=== PATIENT | female | born 1955 | race Caucasian/White ===

== ENCOUNTER 2017-11-16 11:00 | Emergency (ER) | payer OTHER ==
[2017-11-16 11:54] VITALS: BP 86/50
--- NOTE | 2017-11-16 12:59 | UC ---
General HPI - HPI Summary HPI Summary: Patient here accompanied by complaining of onset of right facial swelling since yesterday morning. She has a history of intermittent parotid gland swelling but states her last episode was over 2 years ago. Symptoms usually resolve with warm compresses, massage and lemon candies. This episode is much different. It is not responding to her usual treatments. The swelling and pain are much worse and patient has overall malaise and body aches. She also reports nausea but no vomiting. She has no appetite. Temperature is elevated. No sore throat or ear pain. She reports up-to-date on all vaccinations. Also reports she had mumps as a college student. - History of Current Complaint Chief Complaint: UCUpperExtremity Stated Complaint: SWOLLEN SIDE OF FACE Time Seen by Provider: 11/16/17 12:33 Hx Obtained From: Patient Onset/Duration: Gradual Onset, Lasting Days - 1 DAY, Still Present Timing: Constant Onset Severity: Moderate Current Severity: Moderate Pain Intensity: 8 Associated Signs & Symptoms: Positive: Fever, Headache, Nausea - Allergy/Home Medications Allergies/Adverse Reactions: Allergies Allergy/AdvReac Type Severity Reaction Status Date / Time methotrexate Allergy Headache Verified 11/16/17 11:38 Sulfa (Sulfonamide Allergy Rash Verified 11/16/17 11:38 Antibiotics) Home Medications: Home Medications Calcium Carb/Vitamin D3/Vit K1 [Calcium + D Soft Chewable Tab] 1 each PO DAILY 11/16/17 [History Confirmed 11/16/17] Carvedilol TAB* [Coreg TAB*] 12.5 mg PO BID 11/16/17 [History Confirmed 11/16/17 ] Multivitamin [Multivitamins] 1 cap PO DAILY 11/16/17 [History Confirmed 11/16/17 ] Naproxen Sodium [Naproxen Sodium 500 MG TAB] 500 mg PO DAILY 11/16/17 [History Confirmed 11/16/17] Ramipril CAP* [Altace CAP*] 10 mg PO DAILY 11/16/17 [History Confirmed 11/16/17] predniSONE TAB* [Deltasone TAB*] 2.5 mg PO DAILY 11/16/17 [History Confirmed ] PMH/Surg Hx/FS Hx/Imm Hx - Additional Past Medical History Additional PMH: RA Cardiovascular History: Hypertension - Surgical History Surgical History: Yes Surgery Procedure, Year, and Place: tubal ligation. cholecystectomy. R big toe surgery. L forearm surgery - Family History Known Family History: Positive: Cardiac Disease - Social History Alcohol Use: None Substance Use Type: None Smoking Status (MU): Never Smoked Tobacco Review of Systems Constitutional: Fever, Fatigue Skin: Other - Swollen right parotid gland with overlying erythema ENT: Negative Respiratory: Negative Cardiovascular: Negative Gastrointestinal: Nausea Neurological: Headache All Other Systems Reviewed And Are Negative: Yes Physical Exam Triage Information Reviewed: Yes Appearance: No Pain Distress, Ill-Appearing - MILD Vital Signs: Initial Vital Signs Temp 100.0 F 11/16/17 11:43 Pulse 79 11/16/17 11:43 Resp 18 11/16/17 11:43 BP 86/50 11/16/17 11:43 Pulse Ox 97 11/16/17 11:43 Eyes: Positive: Conjunctiva Clear ENT: Positive: Hearing grossly normal, Pharynx normal, TMs normal, Trismus Neck: Positive: Other: - Right facial swelling in area of parotid gland extending down to neck obscuring the angle of the mandible. Swelling measures about 10 cm. Respiratory Exam: Normal Cardiovascular Exam: Normal Abdomen Description: Positive: Soft Musculoskeletal: Positive: No Edema Neurological: Positive: Alert Psychological: Positive: Age Appropriate Behavior Skin: Positive: Other - Erythema overlying right facial swelling Course/Dx - Course Course Of Treatment: Patient has a low blood pressure, elevated temperature and probable infected salivary gland. Concern for early sepsis. PT OFFERED TRANSPORT TO ED BY AMBULANCE BUT DECLINES. ADVISED THAT BY NOT TRAVELING IN A MONITORED SETTING SHE COULD BE RISKING WORSENING OF HER CONDITION THAT COULD POSE A THREAT TO HER LIFE, HEALTH AND MEDICAL SAFETY. SHE VERBALIZES UNDERSTANDING AND CONTINUES TO DECLINE AMBULANCE TRANSFER. - Differential Dx - Multi-Symptom Provider Diagnoses: INFECTED SALIVARY GLAND/POSSIBLE EARLY SEPSIS Discharge - Sign-Out/Discharge Documenting (check all that apply): Discharge - Discharge Plan Condition: Stable Disposition: HOME Patient Education Materials: Sialoadenitis (ED) Referrals: No Primary Care Phys,NOPCP [Primary Care Provider] - Additional Instructions: Go directly to the [facility] from here for further evaluation. Concern for systemic infection given your elevated temperature, low blood pressure and probable infected salivary gland. You will need to follow up with your PCP back home in [place]. You may need to adjust your blood pressure medication. - Billing Disposition and Condition Condition: STABLE Disposition: HOME
== END 2017-11-16 12:58 | disposition home or self-care (01) ==
LOC: UCEAST 11:00
DX: K11.20 Sialoadenitis, unspecified (principal); R50.9 Fever, unspecified; R51 Headache; R11.0 Nausea; M06.9 Rheumatoid arthritis, unspecified; Z88.2 Allergy status to sulfonamides; Z88.8 Allergy status to other drugs, medicaments and biological substances; I10 Essential (primary) hypertension
CPT/HCPCS: 99201; G0463

== ENCOUNTER 2017-11-16 13:16 | Inpatient (IN) | payer OTHER ==
[2017-11-16] MEDS ORDERED: NS 0.9% 1000 ML*IV.FLUID IV ONE (14:30)
[2017-11-16] MEDS ORDERED: Ondansetron INJ* 2 MG/ML VIAL IV ONE (14:31)
[2017-11-16] MEDS ORDERED: Morphine INJ* 4 MG/ML 1 ML SYRINGE (NEW SYRINGE VERSION) IV ONE ×2 (14:31→16:58)
[2017-11-16] MEDS ORDERED: Morphine VIAL* 4 MG/ML VIAL (1 ml vial) IV ONE (14:47)
[2017-11-16 15:15] LABS: Hematocrit 36 % (35-47); Hemoglobin 11.2 g/dl (12.0-16.0); Mean Corpuscular HGB Conc 31 g/dl (31-36); Mean Corpuscular Hemoglobin 23 pg (27-31); Mean Corpuscular Volume 74 fL (80-97); Mean Platelet Volume 7.8 um3 (7.4-10.4); Platelet Count 328 10^3/ul (150-450); Red Blood Count 4.86 10^6/ul (4.0-5.4); Red Cell Distribution Width 18 % (10.5-15); White Blood Count 26.2 10^3/ul (3.5-10.8)
--- NOTE | 2017-11-16 15:18 | ED ---
Complex/Multi-Sys Presentation - HPI Summary HPI Summary: Patient is a 62-year-old female who presents emergency department for pain, swelling and redness of the right side of her face that started this morning. Patient states she is a history of parotitis in the past. She notes she was not feeling well this morning and then noticed her face progressively becoming more swollen. Associated symptoms of fever and chills. Symptoms are moderate in severity. Hx of RA and is on Humira. Touching face makes symptoms worse. Rest makes symptoms better. - History Of Current Complaint Chief Complaint: EDGeneral Time Seen by Provider: 11/16/17 14:21 - Allergies/Home Medications Allergies/Adverse Reactions: Allergies Allergy/AdvReac Type Severity Reaction Status Date / Time methotrexate Allergy Headache Verified 11/16/17 11:38 Sulfa (Sulfonamide Allergy Rash Verified 11/16/17 11:38 Antibiotics) Home Medications: Home Medications Adalimumab [Humira] 20 mg SQ SEE INSTRUCTIONS 11/16/17 [History Confirmed ] PMH/Surg Hx/FS Hx/Imm Hx Previously Healthy: Yes Cardiovascular History: Reports: Hx Hypertension - Surgical History Surgery Procedure, Year, and Place: tubal ligation. cholecystectomy. R big toe surgery. L forearm surgery Infectious Disease History: No Infectious Disease History: Denies: Traveled Outside the [place] in Last 30 Days - Family History Known Family History: Positive: Cardiac Disease - Social History Occupation: Unemployed Lives: With Family Alcohol Use: None Substance Use Type: Reports: None Smoking Status (MU): Never Smoked Tobacco Review of Systems Positive: Fever, Chills Positive: Other - Swelling and pain to right side of face. Cardiovascular: Negative Respiratory: Negative Gastrointestinal: Negative Negative: Vomiting, Nausea Neurological: Negative All Other Systems Reviewed And Are Negative: Yes Physical Exam Triage Information Reviewed: Yes Vital Signs On Initial Exam: Initial Vitals Temp Pulse Resp BP Pulse Ox 98.8 F 82 18 110/53 98 11/16/17 13:26 11/16/17 13:26 11/16/17 13:26 11/16/17 13:26 11/16/17 13:26 Vital Signs Reviewed: Yes Appearance: Positive: Pain Distress - Pt. sitting up in bed, appears in pain but nontoxic. Marked edema noted to the right side of face. present. Head/Face: Positive: Other Eyes: Positive: Normal, EOMI ENT: Positive: Other - Marked edema, erythema and pain to the right side of face extending from just below the right ear to underneath the madible. Trimsus noted. No muffled voice or drooling. Musculoskeletal: Positive: Normal Neurological: Positive: Normal, CN Intact II-III Psychiatric: Positive: Normal Diagnostics - Vital Signs Vital Signs Temp Pulse Resp BP Pulse Ox 11/16/17 15:03 18 11/16/17 13:26 98.8 F 82 18 110/53 98 - Laboratory Result Diagrams: 11/16/17 15:03 11/16/17 15:03 Lab Statement: Any lab studies that have been ordered have been reviewed, and results considered in the medical decision making process. Complex Multi-Symp Course/Dx Course Of Treatment: P presenting to the emergency department for acute onset of swelling and pain to the right side of her face. Initially afebrile but she did spike a fever 101.4C. HP initially 110/53. Concern for sepsis secondary to parotitis versus dental abscess versus tonsillar abscess. Patient was started on 30 cc/kg bolus of normal saline. Pain medication and antibiotics were ordered. Pending CT scan and blood work. CBC shows a leukocytosis of 26, 000. Labs are otherwise unremarkable. CT read per radiolgoy: IMPRESSION: THERE IS DIFFUSE ENLARGEMENT OF THE PAROTID GLANDS BILATERALLY, GREATER ON THE RIGHT THAN. ON THE LEFT, WITH HETEROGENEOUS ATTENUATION OF THE RIGHT PAROTID GLAND AND BILATERAL. SIALOLITHIASIS. THERE IS INFLAMMATORY CHANGE ADJACENT TO THE RIGHT PAROTID GLAND, THE. APPEARANCE IS SUGGESTIVE OF PAROTITIS. I spoke with ENT, Dr. Houser, and he presented to the ER and examined pt. He would like IV clindamycin and oral prednisone. He will re-exam pt. in the morning. I spoke with hospitalist, Dr. Forrest, and she has accepted pt. to her service. - Diagnoses Provider Diagnoses: Parotitis, Sepsis Discharge - Sign-Out/Discharge Documenting (check all that apply): Discharge - Discharge Plan Condition: Stable Disposition: ADMITTED TO [facility] Referrals: No Primary Care Phys,NOPCP [Primary Care Provider] - - Billing Disposition and Condition Condition: STABLE Disposition: [facility]
[2017-11-16 15:30] LABS: EGFR Non-African American 81.8 (>60)
[2017-11-16] MEDS ORDERED: Clindamycin 300 MG IVPREMIX(* 300 MG/50 ML SDV IVPB ONE (15:32)
[2017-11-16] MEDS ORDERED: Iohexol 300* (CONTRAST) 10 ML SDV IV ONE (15:36)
[2017-11-16 15:43] LABS: ABS Basophils 0 10^3/ul (0-0.2); ABS Eosinophils 0 10^3/ul (0-0.6); ABS Lymphocytes 1.1 10^3/ul (1.0-4.8); ABS Monocytes 0.7 10^3/ul (0-0.8); ABS Neutrophils 24.3 10^3/ul (1.5-7.7); ABS Nucleated RBC 0 10^3/ul; Eosinophil % 0.2 % (0-6); Lymphocyte % 4.2 % (25-47); Nucleated Red Blood Cells % 0
[2017-11-16] MEDS ORDERED: Acetaminophen TAB* 325 MG PO ONE (15:50)
--- NOTE | 2017-11-16 16:06 | RAD ---
HISTORY: Right facial neck edema and pain COMPARISONS: None TECHNIQUE: Multiple contiguous axial CT scans were obtained of the neck after the administration of nonionic intravenous contrast, with coronal and sagittal multiplanar reformations. FINDINGS: BRAIN AND ORBITS: The visualized brain and orbits are normal. PARANASAL SINUSES: The visualized paranasal sinuses are clear. SALIVARY GLANDS: The parotid glands are diffusely enlarged bilaterally, greater on the right than on the left, with multiple punctate calcifications. The right salivary gland is heterogeneous in attenuation. There is mild stranding of the adjacent fat. NASAL CAVITY/NASOPHARYNX: The nasal cavity and nasopharynx are normal. ORAL CAVITY/OROPHARYNX: The oral cavity is obscured by streak artifact from dental amalgam. The visualized oral cavity and oropharynx are unremarkable. LARYNGEAL APPARATUS/HYPOPHARYNX: The laryngeal apparatus and hypopharynx are normal. UPPER AIRWAY/UPPER ESOPHAGUS: The visualized upper airway and esophagus are normal. LUNG APICES: The lung apices are clear. THYROID GLAND: The thyroid gland is normal. LYMPH NODES: There are multiple scattered small, less than 1 cm short axis, lymph nodes noted along the anterior and posterior cervical chain. There is no lymphadenopathy by size criteria. There is a 0.8 cm short axis prevascular lymph node in the anterior mediastinum. VASCULATURE: The vasculature is unremarkable. BONES AND SOFT TISSUES: Mild degenerative changes are noted. OTHER: None. IMPRESSION: THERE IS DIFFUSE ENLARGEMENT OF THE PAROTID GLANDS BILATERALLY, GREATER ON THE RIGHT THAN ON THE LEFT, WITH HETEROGENEOUS ATTENUATION OF THE RIGHT PAROTID GLAND AND BILATERAL SIALOLITHIASIS. THERE IS INFLAMMATORY CHANGE ADJACENT TO THE RIGHT PAROTID GLAND, THE APPEARANCE IS SUGGESTIVE OF PAROTITIS.
[2017-11-16] MEDS ORDERED: Morphine INJ* 2 MG/ML 1 ML CARPUJECT IV PRN (18:44)
[2017-11-16] MEDS ORDERED: Ondansetron INJ* 2 MG/ML VIAL IV PRN (18:44)
[2017-11-16] MEDS ORDERED: NS 0.9% 1000 ML* 1,000 ML IV SCH (18:45)
[2017-11-16] MEDS: Docusate CAP* 100 MG PO SCH (20:36)
[2017-11-16] MEDS: Carvedilol TAB* 25 MG PO SCH (20:36)
[2017-11-16] MEDS: Acetaminophen TAB* 325 MG PO PRN (20:36)
[2017-11-16] MEDS: Clindamycin 600 MG IVPREMIX(* 600 MG/50 ML SDV IV SCH (20:36)
[2017-11-16] MEDS: Hydrocortisone INJ* 100 MG VIAL IV SCH (20:37)
[2017-11-16] MEDS: Morphine VIAL* 4 MG/ML VIAL (1 ml vial) IV PRN (20:42)
[2017-11-16] MEDS: NS 0.9% 1000 ML* 1,000 ML IV SCH ×2 (20:43→22:19)
--- NOTE | 2017-11-16 21:29 | CONS ---
CONSULTATION REPORT: DATE OF CONSULT: 11/16/17 ATTENDING PHYSICIAN: Howard Houser MD for the ER. HISTORY OF PRESENT ILLNESS: This pleasant 62-year-old female residing in [place], is travelling here on business, had a longstanding history about 2 years of intermittent parotid swelling, which she was able to drain mostly on her own. Unfortunately in the last 24 hours, the swelling had markedly increased with significant tenderness and fever, just generalized malaise, felt to be somewhat systemically ill. She has a history of rheumatoid arthritis, on Humira. She is taking oral prednisone. PHYSICAL EXAMINATION: On physical examination, there was no evidence of any purulence. There was a significant amount of right-sided parotid swelling. The rest of the ENT examination was unremarkable. DIAGNOSTIC STUDIES/LAB DATA: CT showed diffuse inflammation of the salivary right parotid gland without any dilated ducts. CLINICAL IMPRESSION: The patient with parotitis most likely inflammatory bacterial with elevated white count. I would suggest a course of IV antibiotics with clindamycin 900 t.i.d., as well as some prednisone 40 mg b.i.d. for 3 days. I will reevaluate her tomorrow for possible dilatation if necessary. [id number]/CPS #: [id number] MTDD
--- NOTE | 2017-11-16 22:11 | HP ---
CC: Dr. Howard Houser * ADMISSION HISTORY AND PHYSICAL: DATE OF ADMISSION: 11/16/17 ATTENDING HOSPITALIST: Dr. Hannah Forrest * (DICTATED BY LANDON BAEZA) CHIEF COMPLAINT: Right-sided facial swelling and pain. HISTORY OF PRESENT ILLNESS: Mrs. Cedeño is a pleasant 62-year-old female with past medical history of rheumatoid arthritis and hypertension, who presented to the Emergency Room at [facility] with a 24-hour history of increasing swelling and pain to her right face. The patient notes that she had had issues with her parotid gland in the past, most recently two years ago. She had a history of stones lodged in her salivary duct that usually was manipulated and removed in a conservative fashion. It started about 6 years ago when she noticed similar complaints and most recently about 2 years ago. She was able to increase her fluid intake and sometimes drinks some sour lemon juice that helped her to pass any stones. She noticed some increased right facial swelling and redness for the last 24 hours that has gotten progressively worse. She notes associated fever, fatigue, and not feeling very well for which she presented at emergency room for further evaluation. The patient was evaluated by Dr. Houser earlier and was found to have parotitis for which we will ask to see the patient for medical evaluation and to discuss admission for IV antibiotics. The patient herself reports feeling better at the time of admission after she took some morphine and IV hydration. Again, she had similar complaints in the past but has never progressed to the amount of swelling and redness that she has experienced right now. She lives in [place] half the year and in [place] the other half during the winter and she is in [place] to visit some good friends. She denied any facial numbness, weakness, headaches, excessive salivation or dry mouth. She has no trouble swallowing, breathing, wheezing or shortness of breath. PAST MEDICAL HISTORY: As mentioned above, significant for hypertension and rheumatoid arthritis for which she has been maintained on a low-dose prednisone. She also has a history of salivary gland stones that usually pass with conservative measures. PAST SURGICAL HISTORY: Significant for: 1. Laparoscopic cholecystectomy back in 1999. 2. Toe surgery in . 3. Tubal ligation back in 1981. 4. Dermatoid cyst excision back in 1984. 5. Tonsillectomy and adenoidectomy at age 5. CURRENT MEDICATIONS: Her medications at home include: 1. Humira 20 mg subcu every three months. 2. Calcium with vitamin D3 one tablet p.o. q.daily. 3. Coreg 12.5 p.o. b.i.d. 4. Multivitamins one cap daily. 5. Naproxen 500 mg p.o. q. daily. 6. Prednisone 2.5 p.o. daily. 7. Altace 10 mg p.o. q. daily. ALLERGIES: She is allergic to METHOTREXATE and SULFA ANTIBIOTICS. FAMILY HISTORY: The patient notes family history of coronary artery disease in both her maternal and paternal side. The patient reports that she had cardiac workup done a few years ago including stress test and echocardiogram and she was found to have all low-risk studies. SOCIAL HISTORY: The patient is a nonsmoker, who denies alcohol intake. 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 She lives in [place] and [place], and here in town to visit some friends, and her healthcare proxy is her , Emre. REVIEW OF SYSTEMS: See HPI. Otherwise negative. She denies any headache, dizziness, blurred vision or double vision. She admits to fever, but denies any chills, night sweats or recent weight loss. No sore throat, rhinorrhea, dysphagia or trouble swallowing. No shortness of breath, wheezing, chest pain or cough. She denies any back pain, flank pain, hematuria, dysuria or urinary frequency. All other 14 points of review of systems were reviewed and negative. PHYSICAL EXAMINATION GENERAL: She is pleasant, healthy-appearing, upper middle-aged female, in no acute distress or discomfort at the time of admission. VITAL SIGNS: Reveal temperature of 100.4, blood pressure of 98/45, respirations of 18, pulse of 79, and O2 sat of 94% on room air. HEENT: Head is normocephalic, atraumatic. Sclerae anicteric. PERRLA. EOMs intact. Oropharynx is pink and moist. Examination of the right parotid gland revealed enlarged gland extending from the tragus of her ear all the way down to the lower mandibular notch. The area is erythematous and warm to touch, and hard to palpation. There is [id number] tenderness on palpation. There is no evidence of discharge looking inside the buccal cavity at the area where the parotid gland duct would open. There is no cervical lymphadenopathy either. NECK: Supple. Trachea midline. No cervical adenopathy or thyromegaly. LUNGS: Clear to auscultation bilaterally. HEART: Regular rate and rhythm. Normal S1 and S2 without rubs, murmurs or gallops. BACK: With normal curvature. No CVA tenderness. BREASTS EXAM: Deferred at this time. ABDOMEN: Soft, nontender, and nondistended. No hernias, masses or hepatosplenomegaly. Bowel sounds were normoactive in all quadrants. EXTREMITIES: Without cyanosis, clubbing or edema. There are visible deformities at the PIP and DIP joints in both hands consistent with rheumatoid arthritis. There is no evidence of synovitis or redness. RECTAL: Deferred at this time. NEUROLOGIC: Grossly intact. DIAGNOSTIC DATA/LABORATORY DATA: The patient had CBC that showed marked leukocytosis with white count of 26,000, hemoglobin of 11.2, hematocrit of 36, and platelets of 328. Her chemistry panel with sodium of 132, potassium 4.1, chloride 98, CO2 24, BUN 15, and creatinine of 0.7. Her LFTs were essentially within normal limits and lactic acid was 1.5. Accessory diagnostic data: The patient had a neck CT scan that revealed a diffuse enlargement of the parotid glands bilaterally; however, it is much greater on the right than the left side with some heterogenous attenuation of the right parotid gland and bilateral sialolithiasis. There is inflammatory change adjacent to the right parotid gland. The appearance is suggestive of parotitis. IMPRESSION: A 62-year-old female with past medical history of hypertension and rheumatoid arthritis, who presented to the emergency room with progressive swelling and redness of her right face with signs, symptoms, and CT scan findings consistent with parotitis with a sepsis. PLAN AND RECOMMENDATIONS: 1. Parotitis with sepsis: The patient meets the criteria for sepsis based on her hypotension, leukocytosis, and fever. She will be hydrated aggressively. She received two boluses 1 L each in the ED and we will add another liter and continue hydration afterwards. She informs that she has been a little dehydrated since she has a hard time consuming food or drinks given her oral discomfort. We will also cover her fever with Tylenol and repeat blood work tomorrow to document resolution of leukocytosis. We will also cover her with IV antibiotics. Dr. Houser has spoken to Dr. Forrest and decision was made to cover her with clindamycin 600 mg t.i.d. and reevaluate in the morning. She appears to be stable at this time and we will follow her up accordingly. 2. Hypertension. We will continue her Altace and Coreg as per prescribed. 3. History of rheumatoid arthritis. We will continue her prednisone. Given her infectious process and stress level, we will provide 50 mg of IV prednisone t.i.d. for the time being. 4. DVT prophylaxis. We will cover her with subcu heparin. 5. Code status. The patient is a full code. ALNDON BAEZA [id number]/CPS #: [id number]
[2017-11-16] MEDS: Heparin VIAL(*) 5000 UNITS/ML VIAL (FIVE THOUSAND) SUBCUT SCH (22:20)
[2017-11-17] MEDS: Hydrocortisone INJ* 100 MG VIAL IV SCH ×3 (03:43→19:40)
[2017-11-17] MEDS: Clindamycin 600 MG IVPREMIX(* 600 MG/50 ML SDV IV SCH ×3 (03:43→20:01)
[2017-11-17 05:44] LABS: ABS Basophils 0.1 10^3/ul (0-0.2); ABS Eosinophils 0 10^3/ul (0-0.6); ABS Lymphocytes 0.8 10^3/ul (1.0-4.8); ABS Monocytes 0.4 10^3/ul (0-0.8); ABS Neutrophils 18.2 10^3/ul (1.5-7.7); ABS Nucleated RBC 0 10^3/ul; Eosinophil % 0 % (0-6); Hematocrit 28 % (35-47); Lymphocyte % 3.9 % (25-47); Mean Corpuscular HGB Conc 32 g/dl (31-36); Mean Corpuscular Hemoglobin 23 pg (27-31); Mean Corpuscular Volume 73 fL (80-97); Mean Platelet Volume 7.9 um3 (7.4-10.4); Nucleated Red Blood Cells % 0.1; Platelet Count 236 10^3/ul (150-450); Red Blood Count 3.86 10^6/ul (4.0-5.4); Red Cell Distribution Width 18 % (10.5-15); White Blood Count 19.5 10^3/ul (3.5-10.8)
[2017-11-17 05:57] LABS: EGFR Non-African American 137.2 (>60)
[2017-11-17] MEDS: Heparin VIAL(*) 5000 UNITS/ML VIAL (FIVE THOUSAND) SUBCUT SCH ×3 (06:32→21:38)
[2017-11-17] MEDS: Carvedilol TAB* 25 MG PO SCH ×2 (08:10→21:38)
[2017-11-17] MEDS: Ramipril CAP* 10 MG PO SCH (08:10)
[2017-11-17] MEDS: Omeprazole CAP* 20 MG PO SCH (08:10)
[2017-11-17] MEDS: Docusate CAP* 100 MG PO SCH ×2 (08:11→21:46)
[2017-11-17] MEDS: NS 0.9% 1000 ML* 1,000 ML IV SCH ×2 (08:12→17:56)
[2017-11-17] MEDS: oxyCODONE/Acetamin 5/325 MG* TAB PO PRN ×2 (10:59→19:35)
--- NOTE | 2017-11-17 17:31 | PN ---
Subjective Date of Service: 11/17/17 Interval History: States that she is feeling better, states that the swelling and pain is improving to the right face. Denies any chest pain or shortness of breath. Denies difficultly swallowing. Denies any abd pain. Family History: Unchanged from Admission Social History: Unchanged from Admission Past Medical History: Unchanged from Admission Objective Active Medications: Acetaminophen (Tylenol Tab*) 650 mg PO Q4H PRN PRN Reason: FEVER/PAIN Last Admin: 11/16/17 20:36 Dose: 650 mg Carvedilol (Coreg Tab*) 12.5 mg PO BID [facility] Last Admin: 11/17/17 08:10 Dose: 12.5 mg Docusate Sodium (Colace Cap*) 100 mg PO BID [facility] Last Admin: 11/17/17 08:11 Dose: 100 mg Heparin Sodium (Porcine) (Heparin Vial(*)) 5,000 units SUBCUT Q8HR [facility] Last Admin: 11/17/17 14:47 Dose: 5,000 units Hydrocortisone Sodium Succinate (Solu-Cortef*) 50 mg IV Q8H [facility] Last Admin: 11/17/17 12:07 Dose: 50 mg Clindamycin HCl/Dextrose (Cleocin 600 Mg Ivpremix(*) Sdv) 600 mg in 50 mls @ 100 mls/hr IV Q8H [facility] Last Admin: 11/17/17 11:55 Dose: 100 mls/hr Sodium Chloride (Ns 0.9% 1000 Ml*) 1,000 mls @ 125 mls/hr IV PER RATE [facility] Last Admin: 11/17/17 08:12 Dose: 125 mls/hr Morphine Sulfate (Morphine Vial*) 2 mg IV Q1H PRN PRN Reason: PAIN - SEVERE Last Admin: 11/16/17 20:42 Dose: 2 mg Omeprazole (Prilosec Cap*) 20 mg PO DAILY [facility] Last Admin: 11/17/17 08:10 Dose: 20 mg Ondansetron HCl (Zofran Inj*) 4 mg IV Q4H PRN PRN Reason: NAUSEA/VOMITING Oxycodone/Acetaminophen (Percocet 5/325 Tab*) 1 tab PO Q4H PRN PRN Reason: Pain Last Admin: 11/17/17 10:59 Dose: 1 tab Ramipril (Altace Cap*) 10 mg PO DAILY [facility] Last Admin: 11/17/17 08:10 Dose: 10 mg Vital Signs - 8 hr 11/17/17 11/17/17 11/17/17 10:59 11:22 13:00 Temperature 98.0 F Pulse Rate 67 Respiratory 16 20 16 Rate Blood Pressure 99/53 (mmHg) O2 Sat by Pulse 95 Oximetry 11/17/17 15:53 Temperature 98.5 F Pulse Rate 68 Respiratory 16 Rate Blood Pressure 100/48 (mmHg) O2 Sat by Pulse 95 Oximetry Oxygen Devices in Use Now: None Appearance: appears comfortable sitting in bed Eyes: No Scleral Icterus Ears/Nose/Mouth/Throat: Clear Oropharnyx, Mucous Membranes Moist Neck: NL Appearance and Movements; NL JVP, Trachea Midline Respiratory: Symmetrical Chest Expansion and Respiratory Effort, Clear to Auscultation Cardiovascular: NL Sounds; No Murmurs; No JVD, No Edema Abdominal: NL Sounds; No Tenderness; No Distention Extremities: No Edema, No Clubbing, Cyanosis Skin: - - right cheek with redness and swelling. Neurological: Alert and Oriented x 3 Nutrition: Taking PO's Result Diagrams: 11/18/17 05:40 11/18/17 12:10 Assess/Plan/Problems-Billing Assessment: Ms. Cedeño is a 62 yo female with a hx of HTN and RA who presented to the emergency room with swelling to her right face. She was found to have parotitis. - Patient Problems (1) Parotitis Current Visit: Yes Status: Acute Code(s): K11.20 - SIALOADENITIS, UNSPECIFIED SNOMED Code(s): 13293401 Comment: ENT consulted- clindamycin 600 mg Q 8 hours pain medications as needed WBC improving 19.5 today swelling and pain improving (2) Sepsis Current Visit: Yes Status: Acute Comment: resolved (3) Hypertension Current Visit: Yes Status: Acute Code(s): I10 - ESSENTIAL (PRIMARY) HYPERTENSION SNOMED Code(s): 07699563 Comment: continue home medications (4) Rheumatoid arthritis Current Visit: Yes Status: Acute Code(s): M06.9 - RHEUMATOID ARTHRITIS, UNSPECIFIED SNOMED Code(s): 65373920 Comment: continue (5) DVT prophylaxis Current Visit: Yes Status: Acute Code(s): FWW2869 - SNOMED Code(s): 710052034 Comment: HSQ (6) Full code status Current Visit: Yes Status: Acute Code(s): Z78.9 - OTHER SPECIFIED HEALTH STATUS SNOMED Code(s): 967902065
[2017-11-18] MEDS: Hydrocortisone INJ* 100 MG VIAL IV SCH (03:30)
[2017-11-18] MEDS: Clindamycin 600 MG IVPREMIX(* 600 MG/50 ML SDV IV SCH ×3 (03:30→19:26)
[2017-11-18] MEDS: Heparin VIAL(*) 5000 UNITS/ML VIAL (FIVE THOUSAND) SUBCUT SCH ×3 (06:21→21:28)
[2017-11-18 06:42] LABS: ABS Basophils 0.1 10^3/ul (0-0.2); ABS Eosinophils 0 10^3/ul (0-0.6); ABS Lymphocytes 0.9 10^3/ul (1.0-4.8); ABS Monocytes 0.7 10^3/ul (0-0.8); ABS Neutrophils 15.4 10^3/ul (1.5-7.7); ABS Nucleated RBC 0 10^3/ul; Eosinophil % 0.1 % (0-6); Hematocrit 28 % (35-47); Lymphocyte % 5.2 % (25-47); Mean Corpuscular HGB Conc 32 g/dl (31-36); Mean Corpuscular Hemoglobin 23 pg (27-31); Mean Corpuscular Volume 72 fL (80-97); Nucleated Red Blood Cells % 0; Platelet Count 262 10^3/ul (150-450); Red Cell Distribution Width 18 % (10.5-15)
[2017-11-18] MEDS: Omeprazole CAP* 20 MG PO SCH (08:54)
[2017-11-18] MEDS: Docusate CAP* 100 MG PO SCH ×2 (08:54→19:30)
[2017-11-18] MEDS: oxyCODONE/Acetamin 5/325 MG* TAB PO PRN ×3 (09:38→23:28)
[2017-11-18] MEDS: Ramipril CAP* 10 MG PO SCH (09:38)
[2017-11-18] MEDS: Morphine VIAL* 4 MG/ML VIAL (1 ml vial) IV PRN ×2 (09:44→14:42)
[2017-11-18 13:04] LABS: EGFR Non-African American 144.4 (>60)
--- NOTE | 2017-11-18 13:08 | CONS ---
CONSULTATION REPORT: DATE OF CONSULT: 11/18/17 REQUESTING PROVIDER: Jocelyn Herring NP CONSULTING SERVICE: Infectious Disease. REASON FOR CONSULTATION: Parotitis. IMPRESSION: 1. Right parotitis likely bacterial, improving; fever, leukocytosis and erythema and pain as well as systemic symptoms while on clindamycin. 2. She has a history of parotitis and sialadenitis. 3. Rheumatoid arthritis, on Humira. RECOMMENDATIONS: 1. Continue clindamycin IV for another 24 hours and then likely we will be able to switch her over to oral antibiotics, and follow up with her ENT doctor in [place]. 2. Continue to hold Humira until she sees her broadcast producer in [place]. HISTORY OF PRESENT ILLNESS: This 62-year-old woman with rheumatoid arthritis, on Humira, admitted with right facial pain and swelling that developed earlier in the week. She had fevers, chills, malaise as well. She came to the hospital. White count was 26,000. She was started on corticosteroids and IV clindamycin. White count is down to 17,000 today. She was initially febrile to 38.7. She has been afebrile for the last 36 hours. She is eating better. She can open her mouth a little bit more. The swelling she thinks is subsiding a little bit as well. She has had this happened 3 or 4 times over the last 10 years, never this severe or requiring hospitalization or antibiotics. It had resolved with sour candy and parotid massage in the past. PAST MEDICAL HISTORY: 1. Rheumatoid arthritis, on Humira. 2. Hypertension. 3. Status post laparoscopic cholecystectomy. 4. Status post toe surgery. 5. Status post tubal ligation. 6. Status post tonsillectomy and adenoidectomy. ALLERGIES: METHOTREXATE and SULFA. MEDICATIONS: 1. Tylenol. 2. Coreg. 3. Clindamycin 600 mg every 8 hours. 4. Docusate. 5. Heparin subcutaneous injection. 6. Hydrocortisone 50 mg IV every 8 hours. 7. Omeprazole. 8. Oxycodone. 9. Ramipril. SOCIAL HISTORY: She lives in [place]. She is here for a conference in [place] with her . No other travel. No sick contacts. FAMILY HISTORY: No recurrent infections. REVIEW OF SYSTEMS: All negative except as noted above in 14-point review of systems. PHYSICAL EXAM: Vital Signs: Temperature is 37, heart rate 60, respiratory rate 18, blood pressure 140/61, oxygen saturation 94% on room air. In general, she is awake, not in distress. Neurologic: She is oriented x3. Follows all commands. Moves all extremities. HEENT: There is no conjunctival hemorrhage. Oropharynx is without lesions. She has mild trismus. Right face focal induration, mild warmth, trace erythema about the parotid gland and extending posterior slightly without fluctuance or crepitus. Neck is supple without mass. Lymph Nodes: No cervical, supraclavicular, inguinal, axillary, or epitrochlear lymphadenopathy. Heart has regular rate and rhythm without murmurs , rubs, or gallops. Lungs are clear to auscultation bilaterally. Abdomen: Soft, nontender, nondistended. There are bowel sounds present. Skin: There is no rash or splinter hemorrhage. Musculoskeletal: There is no spinal tenderness to palpation. Various deformities of the fingers bilaterally. LABORATORY DATA: White blood cell count 17, hemoglobin 9, MCV 72, platelets 262. Creatinine is 0.4. Please see impressions and recommendations outlined above, which I have discussed with Jocelyn Herring NP. Thank you for asking me to see Ms. Cedeño in consultation. [id number]/[facility] #: [id number] MARILOU
[2017-11-18] MEDS: Acetaminophen TAB* 325 MG PO PRN ×2 (16:43→20:35)
--- NOTE | 2017-11-18 16:51 | PN ---
Subjective Date of Service: 11/18/17 Interval History: Swelling continue to improve some. right cheek area with moderate amt of swelling and redness. Site is firm to touch. Denies chest pain or shortness of breath. Denies any difficulty swallowing. c/o leg cramps in bilat thighs Family History: Unchanged from Admission Social History: Unchanged from Admission Past Medical History: Unchanged from Admission Objective Active Medications: Acetaminophen (Tylenol Tab*) 650 mg PO Q4H PRN PRN Reason: FEVER/PAIN Last Admin: 11/18/17 16:43 Dose: 650 mg Carvedilol (Coreg Tab*) 12.5 mg PO BID [facility] Last Admin: 11/17/17 21:38 Dose: 12.5 mg Docusate Sodium (Colace Cap*) 100 mg PO BID [facility] Last Admin: 11/18/17 08:54 Dose: Not Given Heparin Sodium (Porcine) (Heparin Vial(*)) 5,000 units SUBCUT Q8HR [facility] Last Admin: 11/18/17 14:43 Dose: 5,000 units Clindamycin HCl/Dextrose (Cleocin 600 Mg Ivpremix(*) Sdv) 600 mg in 50 mls @ 100 mls/hr IV Q8H [facility] Last Admin: 11/18/17 12:35 Dose: 100 mls/hr Morphine Sulfate (Morphine Vial*) 2 mg IV Q1H PRN PRN Reason: PAIN - SEVERE Last Admin: 11/18/17 14:42 Dose: 2 mg Omeprazole (Prilosec Cap*) 20 mg PO DAILY [facility] Last Admin: 11/18/17 08:54 Dose: 20 mg Ondansetron HCl (Zofran Inj*) 4 mg IV Q4H PRN PRN Reason: NAUSEA/VOMITING Oxycodone/Acetaminophen (Percocet 5/325 Tab*) 1 tab PO Q4H PRN PRN Reason: Pain Last Admin: 11/18/17 09:38 Dose: 1 tab Prednisone (Deltasone Tab*) 10 mg PO DAILY [facility] Ramipril (Altace Cap*) 10 mg PO DAILY [facility] Last Admin: 11/18/17 09:38 Dose: 10 mg Vital Signs - 8 hr 11/18/17 11/18/17 11/18/17 08:56 09:38 09:44 Temperature Pulse Rate 60 Respiratory 18 22 Rate Blood Pressure (mmHg) O2 Sat by Pulse Oximetry 11/18/17 11/18/17 11/18/17 10:54 11:10 11:38 Temperature 98.6 F Pulse Rate 52 Respiratory 18 20 17 Rate Blood Pressure 143/52 (mmHg) O2 Sat by Pulse 95 Oximetry 11/18/17 11/18/17 11/18/17 14:42 14:55 15:42 Temperature 98.6 F Pulse Rate 77 Respiratory 18 22 22 Rate Blood Pressure 131/62 (mmHg) O2 Sat by Pulse 96 Oximetry 11/18/17 16:39 Temperature 100.8 F Pulse Rate 90 Respiratory 22 Rate Blood Pressure 139/81 (mmHg) O2 Sat by Pulse 91 Oximetry Oxygen Devices in Use Now: None Appearance: appear mildly uncomfortable Eyes: No Scleral Icterus Ears/Nose/Mouth/Throat: Clear Oropharnyx, Mucous Membranes Moist Neck: NL Appearance and Movements; NL JVP, Trachea Midline Respiratory: Symmetrical Chest Expansion and Respiratory Effort, Clear to Auscultation Cardiovascular: NL Sounds; No Murmurs; No JVD Abdominal: NL Sounds; No Tenderness; No Distention Extremities: No Edema, No Clubbing, Cyanosis Skin: No Rash or Ulcers, - - right cheek are with swelling and erythema. firm to the touch warm Neurological: Alert and Oriented x 3 Nutrition: Taking PO's Result Diagrams: 11/18/17 05:40 11/18/17 12:10 Assess/Plan/Problems-Billing Assessment: Ms. Cedeño is a 62 yo female with a hx of HTN and RA who presented to the emergency room with swelling to her right face. She was found to have parotitis. - Patient Problems (1) Parotitis Current Visit: Yes Status: Acute Code(s): K11.20 - SIALOADENITIS, UNSPECIFIED SNOMED Code(s): 45706902 Comment: ENT consulted- clindamycin 600 mg Q 8 hours pain medications as needed WBC improving 17.0 today- will repeat cbc in the AM Oscar a fever this afternoon 100.8 swelling and pain improving ID consulted (2) Sepsis Current Visit: Yes Status: Acute Comment: Rsolved Blood culture - no growth day # 2 (3) Hypertension Current Visit: Yes Status: Acute Code(s): I10 - ESSENTIAL (PRIMARY) HYPERTENSION SNOMED Code(s): 66813921 Comment: continue home medications (4) Rheumatoid arthritis Current Visit: Yes Status: Acute Code(s): M06.9 - RHEUMATOID ARTHRITIS, UNSPECIFIED SNOMED Code(s): 63680211 Comment: continue prednisone (5) DVT prophylaxis Current Visit: Yes Status: Acute Code(s): OSU6361 - SNOMED Code(s): 457484396 Comment: HSQ (6) Full code status Current Visit: Yes Status: Acute Code(s): Z78.9 - OTHER SPECIFIED HEALTH STATUS SNOMED Code(s): 447040237 Status and Disposition: inpatient
[2017-11-18] MEDS: Carvedilol TAB* 25 MG PO SCH ×2 (17:22→20:35)
[2017-11-18] MEDS ORDERED: Morphine VIAL* 4 MG/ML VIAL (1 ml vial) IV PRN (19:39)
[2017-11-18] MEDS ORDERED: Magnesium Sulfate 1 GM IV* 1 GM/100 ML BAG IV ONE (19:40)
[2017-11-19] MEDS: Clindamycin 600 MG IVPREMIX(* 600 MG/50 ML SDV IV SCH ×3 (03:21→19:19)
[2017-11-19] MEDS: Acetaminophen TAB* 325 MG PO PRN ×2 (03:21→19:19)
[2017-11-19] MEDS: Heparin VIAL(*) 5000 UNITS/ML VIAL (FIVE THOUSAND) SUBCUT SCH ×3 (05:40→21:32)
[2017-11-19] MEDS ORDERED: Iohexol 300* (CONTRAST) 10 ML SDV IV ONE (06:09)
[2017-11-19] MEDS: Ramipril CAP* 10 MG PO SCH (07:57)
[2017-11-19] MEDS: predniSONE TAB* 20 MG PO SCH (07:57)
[2017-11-19] MEDS: Carvedilol TAB* 25 MG PO SCH ×2 (07:57→20:25)
[2017-11-19] MEDS: Omeprazole CAP* 20 MG PO SCH (07:57)
[2017-11-19] MEDS: oxyCODONE/Acetamin 5/325 MG* TAB PO PRN ×2 (07:58→15:06)
[2017-11-19] MEDS: Docusate CAP* 100 MG PO SCH ×2 (08:01→19:26)
[2017-11-19] MEDS ORDERED: predniSONE TAB* 20 MG PO SCH (09:00)
[2017-11-19 09:09] LABS: ABS Basophils 0 10^3/ul (0-0.2); ABS Eosinophils 0.2 10^3/ul (0-0.6); ABS Lymphocytes 1.1 10^3/ul (1.0-4.8); ABS Monocytes 1.2 10^3/ul (0-0.8); ABS Neutrophils 12.3 10^3/ul (1.5-7.7); ABS Nucleated RBC 0 10^3/ul; Eosinophil % 1.5 % (0-6); Hematocrit 28 % (35-47); Hemoglobin 9.1 g/dl (12.0-16.0); Lymphocyte % 7.4 % (25-47); Mean Corpuscular HGB Conc 32 g/dl (31-36); Mean Corpuscular Hemoglobin 23 pg (27-31); Mean Corpuscular Volume 72 fL (80-97); Mean Platelet Volume 8.3 um3 (7.4-10.4); Nucleated Red Blood Cells % 0; Platelet Count 276 10^3/ul (150-450); Red Blood Count 3.91 10^6/ul (4.0-5.4); Red Cell Distribution Width 18 % (10.5-15); White Blood Count 14.9 10^3/ul (3.5-10.8)
--- NOTE | 2017-11-19 09:18 | RAD ---
HISTORY: Parotiditis COMPARISONS: November 16, 2017 TECHNIQUE: Multiple contiguous axial CT scans were obtained of the neck after the administration of nonionic intravenous contrast, with coronal and sagittal multiplanar reformations. FINDINGS: BRAIN AND ORBITS: The visualized brain and orbits are normal. PARANASAL SINUSES: The visualized paranasal sinuses are clear. There is a right mastoid effusion. SALIVARY GLANDS: Again noted are diffusely enlarged and heterogeneous parotid glands bilaterally, greater on the right than on the left with multiple punctate calcifications. There is mild stranding of the adjacent fat with thickening of the platysma fascia. NASAL CAVITY/NASOPHARYNX: The nasal cavity and nasopharynx are normal. ORAL CAVITY/OROPHARYNX: The oral cavity is obscured by streak artifact from dental amalgam. The visualized oral cavity and oropharynx are unremarkable. LARYNGEAL APPARATUS/HYPOPHARYNX: The laryngeal apparatus and hypopharynx are normal. UPPER AIRWAY/UPPER ESOPHAGUS: The visualized upper airway and esophagus are normal. LUNG APICES: There has been interval development of moderate bilateral pleural effusions. There are calcified mediastinal and right hilar lymph nodes. THYROID GLAND: The thyroid gland is normal. LYMPH NODES: There are innumerable scattered small, less than 1 cm short axis, lymph nodes noted along the anterior and posterior cervical chain. The largest is a 0.7 cm short axis level 2 lymph node on the right. There is no lymphadenopathy by size criteria. VASCULATURE: The vasculature is unremarkable. BONES AND SOFT TISSUES: Mild degenerative changes are noted. OTHER: None. IMPRESSION: 1. AGAIN NOTED IS HETEROGENEOUS ENLARGEMENT OF THE PAROTID GLANDS BILATERALLY, GREATER ON THE RIGHT THAN ON THE LEFT, WITH MILD ADJACENT INFLAMMATORY CHANGE CONSISTENT WITH PAROTITIS. THIS IS SIMILAR TO THE PREVIOUS EXAMINATION. 2. RIGHT MASTOID EFFUSION. 3. BILATERAL PLEURAL EFFUSIONS. .
[2017-11-19 09:23] LABS: EGFR Non-African American 152.4 (>60)
[2017-11-19] MEDS: ceFAZolin 1 GM VIAL(*) 1 GM in NS 0.9% 50 ML* 50 ML IVPB SCH ×2 (15:05→21:52)
--- NOTE | 2017-11-19 18:01 | PN ---
Subjective Date of Service: 11/19/17 Interval History: Patient reports that she is feeling a little better. Continue to c/o right facial and neck pain. Denies difficult swallowing. Denies chest pain or shortness of breath. Denies abd pain n/v/d. Family History: Unchanged from Admission Social History: Unchanged from Admission Past Medical History: Unchanged from Admission Objective Active Medications: Acetaminophen (Tylenol Tab*) 650 mg PO Q4H PRN PRN Reason: FEVER/PAIN Last Admin: 11/19/17 03:21 Dose: 650 mg Carvedilol (Coreg Tab*) 12.5 mg PO BID [facility] Last Admin: 11/19/17 07:57 Dose: 12.5 mg Docusate Sodium (Colace Cap*) 100 mg PO BID [facility] Last Admin: 11/19/17 08:01 Dose: Not Given Heparin Sodium (Porcine) (Heparin Vial(*)) 5,000 units SUBCUT Q8HR [facility] Last Admin: 11/19/17 15:05 Dose: 5,000 units Clindamycin HCl/Dextrose (Cleocin 600 Mg Ivpremix(*) Sdv) 600 mg in 50 mls @ 100 mls/hr IV Q8H [facility] Last Admin: 11/19/17 12:22 Dose: 100 mls/hr Cefazolin Sodium 1 gm/ Sodium (Chloride) 50 mls @ 200 mls/hr IVPB Q8H [facility] Stop: 11/21/17 06:14 Last Admin: 11/19/17 15:05 Dose: 200 mls/hr Morphine Sulfate (Morphine Vial*) 2 mg IV Q4H PRN PRN Reason: PAIN - SEVERE Omeprazole (Prilosec Cap*) 20 mg PO DAILY [facility] Last Admin: 11/19/17 07:57 Dose: 20 mg Ondansetron HCl (Zofran Inj*) 4 mg IV Q4H PRN PRN Reason: NAUSEA/VOMITING Oxycodone/Acetaminophen (Percocet 5/325 Tab*) 1 tab PO Q4H PRN PRN Reason: Pain Last Admin: 11/19/17 15:06 Dose: 1 tab Prednisone (Deltasone Tab*) 10 mg PO DAILY [facility] Last Admin: 11/19/17 07:57 Dose: 10 mg Ramipril (Altace Cap*) 10 mg PO DAILY [facility] Last Admin: 11/19/17 07:57 Dose: 10 mg Vital Signs - 8 hr 11/19/17 11/19/17 11/19/17 09:58 11:01 15:06 Temperature 98.8 F Pulse Rate 83 Respiratory 18 18 18 Rate Blood Pressure 107/63 (mmHg) O2 Sat by Pulse 92 Oximetry 11/19/17 15:26 Temperature 98.5 F Pulse Rate 99 Respiratory 14 Rate Blood Pressure 115/66 (mmHg) O2 Sat by Pulse 94 Oximetry Oxygen Devices in Use Now: None Eyes: No Scleral Icterus Ears/Nose/Mouth/Throat: Clear Oropharnyx, Mucous Membranes Moist Neck: NL Appearance and Movements; NL JVP, Trachea Midline Respiratory: Symmetrical Chest Expansion and Respiratory Effort, Clear to Auscultation Cardiovascular: NL Sounds; No Murmurs; No JVD, No Edema Abdominal: NL Sounds; No Tenderness; No Distention Extremities: No Edema, No Clubbing, Cyanosis Skin: No Rash or Ulcers, - - right faical and neck with swelling and redness Neurological: Alert and Oriented x 3, NL Gait, NL Muscle Strength and Tone Nutrition: Taking PO's Result Diagrams: 11/19/17 08:44 11/19/17 08:44 Assess/Plan/Problems-Billing Assessment: Ms. Cedeño is a 62 yo female with a hx of HTN and RA who presented to the emergency room with swelling to her right face. She was found to have parotitis. - Patient Problems (1) Parotitis Current Visit: Yes Status: Acute Code(s): K11.20 - SIALOADENITIS, UNSPECIFIED SNOMED Code(s): 68359891 Comment: ENT consulted- clindamycin 600 mg Q [address] Mccormick consulted- recommended continuing Clindamycin- switch to PO at discharge pain medications as needed WBC improving 14.9 today- will repeat cbc in the AM Oscar a fever yesterday afternoon and evening. afebrile today swelling and pain improving - repeat ct - scan today showed no abscess Dr. Houser has consulted and seen patient thought out this hospitalization - no surgery needed Needs to follow up with ENT doctor in [place] (2) Sepsis Current Visit: Yes Status: Acute Comment: Rsolved Blood culture - no growth day # 3 WBC responding to antibiotics (3) Hypertension Current Visit: Yes Status: Acute Code(s): I10 - ESSENTIAL (PRIMARY) HYPERTENSION SNOMED Code(s): 23969649 Comment: continue home medications (4) Rheumatoid arthritis Current Visit: Yes Status: Acute Code(s): M06.9 - RHEUMATOID ARTHRITIS, UNSPECIFIED SNOMED Code(s): 76119222 Comment: continue prednisone 10 mg - will taper for home back to maintance dose of 2.5 mg Hold humira for now until she follow up with RA doctor in [place] (5) DVT prophylaxis Current Visit: Yes Status: Acute Code(s): IUD9293 - SNOMED Code(s): 681960106 Comment: HSQ (6) Full code status Current Visit: Yes Status: Acute Code(s): Z78.9 - OTHER SPECIFIED HEALTH STATUS SNOMED Code(s): 299921156 Status and Disposition: inpatient - would like d/c tomorrow
[2017-11-20] MEDS: Clindamycin 600 MG IVPREMIX(* 600 MG/50 ML SDV IV SCH ×2 (03:32→11:13)
[2017-11-20] MEDS: ceFAZolin 1 GM VIAL(*) 1 GM in NS 0.9% 50 ML* 50 ML IVPB SCH (05:22)
[2017-11-20] MEDS: Heparin VIAL(*) 5000 UNITS/ML VIAL (FIVE THOUSAND) SUBCUT SCH (05:25)
[2017-11-20 07:01] LABS: ABS Basophils 0.1 10^3/ul (0-0.2); ABS Eosinophils 0.3 10^3/ul (0-0.6); ABS Monocytes 0.7 10^3/ul (0-0.8); ABS Neutrophils 8.4 10^3/ul (1.5-7.7); ABS Nucleated RBC 0 10^3/ul; Eosinophil % 2.5 % (0-6); Hematocrit 28 % (35-47); Lymphocyte % 9.9 % (25-47); Mean Corpuscular HGB Conc 33 g/dl (31-36); Mean Corpuscular Hemoglobin 23 pg (27-31); Mean Corpuscular Volume 72 fL (80-97); Mean Platelet Volume 8.1 um3 (7.4-10.4); Nucleated Red Blood Cells % 0; Platelet Count 270 10^3/ul (150-450); Red Blood Count 3.85 10^6/ul (4.0-5.4); Red Cell Distribution Width 18 % (10.5-15); White Blood Count 10.5 10^3/ul (3.5-10.8)
[2017-11-20] MEDS: Carvedilol TAB* 25 MG PO SCH (08:12)
[2017-11-20] MEDS: Acetaminophen TAB* 325 MG PO PRN (08:12)
[2017-11-20] MEDS: Ramipril CAP* 10 MG PO SCH (08:12)
[2017-11-20] MEDS: predniSONE TAB* 20 MG PO SCH (08:12)
[2017-11-20] MEDS: Omeprazole CAP* 20 MG PO SCH (08:12)
[2017-11-20] MEDS: Docusate CAP* 100 MG PO SCH (08:13)
[2017-11-20 11:56] VITALS: BP 115/61
--- NOTE | 2017-11-20 12:10 | PN ---
Subjective Date of Service: 11/20/17 Interval History: Patient seen and examined at bedside. Denies fever, chills, shortness of breath , chest discomfort, N/V/D. Pt states that she is feeling much better today and the pain and swelling are improving. Discussed case with Dr. Houser and he is comfortable with her going home today, if she was feeling improved. Family History: Unchanged from Admission Social History: Unchanged from Admission Past Medical History: Unchanged from Admission Objective Active Medications: Acetaminophen (Tylenol Tab*) 650 mg PO Q4H PRN Reason: FEVER/PAIN Carvedilol (Coreg Tab*) 12.5 mg PO BID [facility] Docusate Sodium (Colace Cap*) 100 mg PO BID [facility] Heparin Sodium (Porcine) (Heparin Vial(*)) 5,000 units SUBCUT Q8HR [facility] Clindamycin HCl/Dextrose (Cleocin 600 Mg Ivpremix(*) Sdv) 600 mg in 50 mls @ 100 mls/hr IV Q8H [facility] Cefazolin Sodium 1 gm/ Sodium (Chloride) 50 mls @ 200 mls/hr IVPB Q8H [facility] Stop: 11/21/17 06:14 Morphine Sulfate (Morphine Vial*) 2 mg IV Q4H PRN Reason: PAIN - SEVERE Omeprazole (Prilosec Cap*) 20 mg PO DAILY [facility] Ondansetron HCl (Zofran Inj*) 4 mg IV Q4H PRN Reason: NAUSEA/VOMITING Oxycodone/Acetaminophen (Percocet 5/325 Tab*) 1 tab PO Q4H PRN Reason: Pain Prednisone (Deltasone Tab*) 10 mg PO DAILY [facility] Ramipril (Altace Cap*) 10 mg PO DAILY [facility] Vital Signs - 8 hr 11/20/17 11/20/17 11/20/17 07:18 08:00 08:01 Temperature 99.7 F Pulse Rate 95 Respiratory 18 18 Rate Blood Pressure 135/70 (mmHg) O2 Sat by Pulse 93 93 Oximetry 11/20/17 11:04 Temperature 98.9 F Pulse Rate 72 Respiratory 16 Rate Blood Pressure 115/61 (mmHg) O2 Sat by Pulse 97 Oximetry Oxygen Devices in Use Now: None Appearance: NAD, sitting up in a chair Ears/Nose/Mouth/Throat: Mucous Membranes Moist, - - Mild erythmea and swelling to right side of face near ear Respiratory: Symmetrical Chest Expansion and Respiratory Effort, Clear to Auscultation Cardiovascular: NL Sounds; No Murmurs; No JVD, RRR Abdominal: NL Sounds; No Tenderness; No Distention Extremities: No Edema Skin: No Rash or Ulcers Neurological: Alert and Oriented x 3, NL Muscle Strength and Tone Lines/Tubes/Other Access: Clean, Dry and Intact Peripheral IV - site benign Nutrition: Taking PO's Result Diagrams: 11/20/17 06:39 11/19/17 08:44 Assess/Plan/Problems-Billing Assessment: Ms. Cedeño is a 62 yo female with a hx of HTN and RA who presented to the emergency room with swelling to her right face. She was found to have parotitis. - Patient Problems (1) Parotitis Code(s): K11.20 - SIALOADENITIS, UNSPECIFIED SNOMED Code(s): 50731227 Comment: - Leukocytosis resolved, afebrile - Swelling and pain improving - Repeat ct - scan showed no abscess - ENT consulted- clindamycin 600 mg Q 8 hours - Dr. Mccormick consulted - recommended continuing Clindamycin- switch to PO at discharge - Continue pain medications as needed - Needs to follow up with ENT doctor in [place] (2) Sepsis Comment: - Present on admission, now resolved - Blood cultures - no growth day # 3 - Leukocytosis resolved (3) Hypertension Code(s): I10 - ESSENTIAL (PRIMARY) HYPERTENSION SNOMED Code(s): 96361760 Comment: - SBP 110-130's - Continue carvedilol (4) Rheumatoid arthritis Code(s): M06.9 - RHEUMATOID ARTHRITIS, UNSPECIFIED SNOMED Code(s): 66962344 Comment: - Continue prednisone 10 mg - Will taper for home back to maintance dose of 2.5 mg - Hold humira for now until she follow up with RA doctor in [place] (5) DVT prophylaxis Code(s): SEX8559 - SNOMED Code(s): 013812539 Comment: - HSQ (6) Full code status Code(s): Z78.9 - OTHER SPECIFIED HEALTH STATUS SNOMED Code(s): 558814659 Status and Disposition: Inpatient. Discharge to home when medically stable, stable for discharge today.
--- NOTE | 2017-11-20 22:00 | DS ---
DISCHARGE SUMMARY: DATE OF ADMISSION: 11/16/17 DATE OF DISCHARGE: 11/20/17 ATTENDING PHYSICIAN: Dr. Jenna Silva* (dictated by Shaun Ko NP). PRIMARY DIAGNOSES: 1. Parotiditis. 2. Sepsis, resolved. SECONDARY DIAGNOSES: 1. Hypertension. 2. Rheumatoid arthritis. CONSULTATIONS WHILE IN THE HOSPITAL: 1. Howard Houser MD with ENT. 2. Jun Finney MD with Infectious Disease. STUDIES WHILE IN THE HOSPITAL: 1. CT on 11/16/17. Radiologist impression: There is diffuse enlargement of the parotid glands, bilateral, greater on the right than on the left, with heterogenous attenuation of the right parotid gland and bilateral sialolithiasis. There is inflammatory change adjacent to the right parotid gland, the appearance is suggestive of parotiditis. 2. CT on 11/19/17, radiologist impression. Again, noted is heterogenous enlargement of the parotid glands bilateral, greater on the right than on the left, with mild adjacent inflammatory changes consistent with parotiditis. This is similar to previous examination. Right mastoid effusion. Bilateral pleural effusions. DISCHARGE MEDICATIONS: New home medications: 1. Clindamycin 450 mg oral 3 times daily for 10 days. 2. Acetaminophen 650 mg oral every 4 hours as needed for fever or pain. Continued home medications: 1. Multivitamin 1 tablet oral daily. 2. Carvedilol 12.5 mg oral twice daily. 3. Ramipril 10 mg oral daily. 4. Naproxen 500 mg oral daily. 5. Calcium plus D 1 oral daily. Changed home medication: Prednisone taper 5 mg oral daily for 2 days followed by return to home 2.5 mg oral daily after that. Discontinued home medication: Humira, hold until okay to resume by Rheumatology. HISTORY OF PRESENT ILLNESS/HOSPITAL COURSE: Ms. Cedeño is a 62-year-old female with a past medical history significant for rheumatoid arthritis and hypertension, who presented to the emergency room with a 24-hour history of increased swelling and pain on the right side of her face. The patient has had histories of issues with her parotid gland in the past, most recently was 2 years ago. She has a history of stones lodged in her salivary duct that usually was manipulated and removed in a conservative fashion. Generally, the patient is able to increase her fluid intake and drinks some sour lemon juice that helps her pass any stones. She noticed increased right facial swelling and redness that had progressively gotten worse. She denied any associated fevers, fatigue. Due to not feeling well, she decided to present to the emergency room for further evaluation. While in the emergency room, she underwent a neck CT showing signs of parotiditis. She was seen in consultation by Dr. Houser, who recommended that she be admitted for IV antibiotics. During her hospitalization, she was placed on IV clindamycin. She was seen in consultation by Infectious Disease, who recommended to place her on clindamycin at discharge. The patient continued to have swelling. She underwent a second neck CT showing no changes and it was felt she had no need to go to surgery. The patient was started on cefazolin to broaden her antibiotic coverage. She mostly remained afebrile during her stay with the exception of low-grade fever of 100.8 on 11/18/17. Her leukocytosis resolved. She had a mumps IgG antibody that was positive and a mumps virus IgM antibody that was equivocal. She had a CRP of 173.83 on the morning of discharge. She did not have CRP done on admission, so it was unclear if that was improving. The patient was feeling much better and was anxious to go home to return to her winter home in [place]. Ms. Cedeño is stable for discharge today. Vital signs are as follows: Temperature 98.9, heart rate 72, respiratory rate 16, O2 sat 97% on room air, blood pressure 115/61. In regards to her prednisone, she had had her prednisone increased to 10 mg daily. She has been asked to take 5 mg daily starting in the morning for 2 days and then go to her home 2.5 mg oral dosing. DISCHARGE PLAN: Ms. Cedeño will be discharged to home. Activity as tolerated. She will be on a regular diet. She is encouraged to drink plenty of fluids to stay hydrated. Regards to her parotiditis, she will be continued on clindamycin 450 mg oral 3 times daily for 10 more days. Her sepsis resolved during her stay. She has been asked to hold her Humira until she is able to contact her chassis wirer back in [place] and will either follow their recommendations or they will assist her in getting a chassis wirer in [place]. The patient has been asked to arrange for an ENT followup on Wednesday or Wednesday when she returns to [place]. She believes it will take 2 to [address] to return back to [place]. The patient has been asked to stop at an emergency room along the way if she develops chest pain, fever, chills, or worsening symptoms such as increased redness or swelling of the right side of her face. This is a summarized report of a complex medical history and hospital stay. For further details, please see the entire medical record. TIME SPENT: Time for this discharge was approximately 50 minutes, greater than half of that was spent with the patient and her discussing discharge plans and instructions. CONDITION ON DISCHARGE: Stable. SHAUN KO NP [id number]/[facility] #: [id number] MARILOU
== END 2017-11-20 13:45 | disposition home or self-care (01) | DRG 720 ==
LOC: ED 13:16 → MED 18:13
PROVIDERS: ADMIT Internal Medicine; ATTEND Internal Medicine
DX: A41.9 Sepsis, unspecified organism (principal); K11.20 Sialoadenitis, unspecified; I10 Essential (primary) hypertension; M06.9 Rheumatoid arthritis, unspecified; Z79.52 Long term (current) use of systemic steroids; Z79.899 Other long term (current) drug therapy; Z88.2 Allergy status to sulfonamides; Z88.8 Allergy status to other drugs, medicaments and biological substances; Z82.49 Family history of ischemic heart disease and other diseases of the circulatory system
CPT/HCPCS: 36415; 70491; 80048; 80053; 83605; 83735; 85025; 85652; 86038; 86140; 86235; 86735; 87040; 99284; A9270-GY; J0690; J1644; J1720; J2270; J2405; J3475; J7512; Q9967